=== PATIENT | female | born 1995 | race African-American/Black ===

== ENCOUNTER 2020-12-30 20:41 | Inpatient (IN) | payer OTHER ==
[2020-12-30 21:54] LABS: Hemoglobin 10.7 gm/dl (10.1-14.3); Mean Corpuscular HGB Conc 32 % (30-34); Mean Corpuscular Volume 71 fl (79-97); Platelet Count 225 K/mm3 (140-440); Red Blood Count 4.65 M/mm3 (3.65-5.03); Red Cell Distribution Width 15.2 % (13.2-15.2)
[2020-12-31] MEDS ORDERED: AMPICILLIN/NS 2 GM/100 ML 2 GM/100 ML BAG IV ONE (00:43)
[2020-12-31] MEDS ORDERED: TERBUTALINE 1 MG/1 ML INJ SUB-Q PRN (00:43)
[2020-12-31] MEDS ORDERED: ONDANSETRON 4 MG/2 ML INJ IV PRN (00:43)
[2020-12-31] MEDS ORDERED: NALOXONE 0.4 MG/1 ML INJ IV PRN (00:43)
[2020-12-31] MEDS ORDERED: ePHEDrine SULFATE 50 MG/1 ML INJ IV PRN ×2 (00:43→20:04)
[2020-12-31] MEDS ORDERED: MINERAL OIL 30 ML ORAL LIQD PO PRN (00:43)
[2020-12-31] MEDS ORDERED: BUTORPHANOL 2 MG/1 ML INJ IV PRN (00:43)
[2020-12-31] MEDS ORDERED: OXYTOCIN DRIP 30 UNITS/500 ML BAG IV SCH ×2 (01:00)
--- NOTE | 2020-12-31 01:07 | History and Physical Report ---
History of Present Illness Date of examination: 12/31/20 Date of admission: 12/30/20 20:41 Chief complaint: Presents for scheduled induction of labor secondary to GDM A2. History of present illness: Late entry to care at 14 4/7 weeks to [facility]. course complicated by GDM (following with [facility]; on Glyburide 2.5mg PO after dinner), anemia (on Ferrous Sulfate 325mg PO daily), and vitamin D deficiency (took PO Vit D supplementation). Past History Past Medical History: no pertinent history Past Surgical History: hemorrhoidectomy Family/Genetic History: diabetes, hypertension Social history: no significant social history - Obstetrical History Expected Date of Delivery: 01/05/21 Actual Gestation: 39 Week(s) 2 Day(s) : 1 Para: 0 Medications and Allergies Allergies Allergy/AdvReac Type Severity Reaction Status Date / Time No Known Allergies Allergy Unverified 12/30/20 21:48 Home Medications Medication Instructions Recorded Confirmed Last Taken Type One Daily Tablet 1 tab PO DAILY 12/30/20 12/30/20 12/30/20 10:00 History Active Meds: Active Medications Butorphanol Tartrate (Butorphanol 2 Mg/1 Ml Inj) 2 mg IV Q2H PRN PRN Reason: Pain , Severe (7-10) Ephedrine Sulfate (Ephedrine Sulfate 50 Mg/1 Ml Inj) 10 mg IV Q2M PRN PRN Reason: Hypotension Oxytocin/Sodium Chloride (Pitocin/Ns 30 Unit/500ml) 30 units in 500 mls @ 2 mls/hr IV TITR ANJU; Protocol Lactated Ringer's (Lactated Ringers) 1,000 mls @ 125 mls/hr IV DIRECT ANJU Oxytocin/Sodium Chloride (Pitocin/Ns 30 Unit/500ml) 30 units in 500 mls @ 40 mls/hr IV TITR ANJU; Protocol Ampicillin Sodium (Ampicillin/Ns 2 Gm/100 Ml) 2 gm in 100 mls @ 100 mls/hr IV ONCE ONE; Protocol Stop: 12/31/20 01:42 Ampicillin Sodium (Ampicillin/Ns 1 Gm/50 Ml) 1 gm in 50 mls @ 100 mls/hr IV Q4H ANJU; Protocol Mineral Oil (Mineral Oil 30 Ml Oral Liqd) 30 ml PO QHS PRN PRN Reason: Constipation Naloxone HCl (Naloxone 0.4 Mg/1 Ml Inj) 0.1 mg IV Q2MIN PRN PRN Reason: Res Rate </= 8 or 02 SAT < 92% Ondansetron HCl (Ondansetron 4 Mg/2 Ml Inj) 4 mg IV Q8H PRN PRN Reason: Nausea And Vomiting Terbutaline Sulfate (Terbutaline 1 Mg/1 Ml Inj) 0.25 mg SUB-Q ONCE PRN PRN Reason: Hyperstimulation/Hypertonicity Review of Systems All systems: negative - Vital Signs Vital signs: Vital Signs Temp Pulse Resp BP Pulse Ox 98.6 F 94 H 16 107/56 99 12/30/20 21:59 12/30/20 21:59 12/30/20 21:59 12/30/20 21:59 12/30/20 21:59 Temp Pulse Resp BP Pulse Ox 98.6 F 93 H 16 107/56 99 12/30/20 21:59 12/31/20 00:53 12/30/20 21:59 12/30/20 22:01 12/31/20 00:53 - Physical Exam Breasts: Positive: normal Cardiovascular: Regular rate Lungs: Positive: Clear to auscultation, Normal air movement Abdomen: Positive: normal appearance, soft Genitourinary (Female): Positive: normal external genitalia, normal perenium Vagina: Positive: normal moisture Uterus: Positive: enlarged Anus/Rectum: Positive: normal perianal skin Extremities: Positive: normal - Obstetrical FHR: category 1 Uterine Contraction Monitor Mode: External Cervical Dilatation: 1 (intact; vtx) Cervical Effacement Percentage: 20 station: -3 Uterine Contraction Frequency (min): 1-4 Uterine Contraction Duration: 60 Uterine Contraction Pattern: Irregular Uterine Tone Measurement Phase: Resting Uterine Contraction Intensity: Mild Results Result Diagrams: 12/30/20 21:45 Abnormal lab results 12/30/20 Range/Units 21:45 MCV 71 L (79-97) fl MCH 23 L (28-32) pg All other labs normal. Assessment and Plan A: IUP at 39 2/7 weeks Category I tracing GDM A2 GBS Positive P: Admit to L&D per routine orders Accuchecks q 6 hours Hold Pitocin until contractions begin to space out Expectant Management GBS Prophylaxis
[2020-12-31] MEDS: LACTATED RINGERS 1,000 ML IV SCH ×2 (01:11→10:39)
[2020-12-31] MEDS: AMPICILLIN/NS 1 GM/50 ML 1 GM/50 ML BAG IV SCH ×2 (05:08→18:04)
--- NOTE | 2020-12-31 09:43 | Progress Note ---
Assessment and Plan A: IUP@ 39.2 wks GDMA2 P: Continue monitoring with Pitocin Accuchecks q4 hr Pain med/Epidural prn Anticipate progress Subjective - Subjective Date of service: 12/31/20 Principal diagnosis: IUP@ 39.2 WKS Patient reports: movement normal Objective - Vital Signs Vital Signs: Vital Signs - 12hr 12/30/20 12/30/20 12/30/20 21:59 22:00 22:01 Temperature 98.6 F Pulse Rate 94 H 83 Respiratory 16 Rate Blood Pressure 107/56 Blood Pressure 107/56 [Right] O2 Sat by Pulse 99 98 Oximetry 12/30/20 12/30/20 12/30/20 22:05 22:10 22:15 Temperature Pulse Rate 81 88 96 H Respiratory Rate Blood Pressure Blood Pressure [Right] O2 Sat by Pulse 99 98 98 Oximetry 12/30/20 12/30/20 12/30/20 22:20 22:25 22:30 Temperature Pulse Rate 113 H 98 H 120 H Respiratory Rate Blood Pressure Blood Pressure [Right] O2 Sat by Pulse 98 98 98 Oximetry 12/30/20 12/30/20 12/30/20 22:35 22:40 22:45 Temperature Pulse Rate 117 H 98 H 115 H Respiratory Rate Blood Pressure Blood Pressure [Right] O2 Sat by Pulse 98 98 98 Oximetry 12/30/20 12/30/20 12/30/20 22:50 22:55 23:03 Temperature Pulse Rate 111 H 98 H 100 H Respiratory Rate Blood Pressure Blood Pressure [Right] O2 Sat by Pulse 98 97 99 Oximetry 12/30/20 12/30/20 12/30/20 23:08 23:13 23:18 Temperature Pulse Rate 99 H 105 H 90 Respiratory Rate Blood Pressure Blood Pressure [Right] O2 Sat by Pulse 98 99 99 Oximetry 12/30/20 12/30/20 12/30/20 23:23 23:28 23:33 Temperature Pulse Rate 91 H 100 H 100 H Respiratory Rate Blood Pressure Blood Pressure [Right] O2 Sat by Pulse 99 100 99 Oximetry 12/30/20 12/30/20 12/30/20 23:38 23:43 23:48 Temperature Pulse Rate 93 H 111 H 112 H Respiratory Rate Blood Pressure Blood Pressure [Right] O2 Sat by Pulse 98 99 99 Oximetry 12/30/20 12/30/20 12/31/20 23:53 23:58 00:03 Temperature Pulse Rate 80 88 97 H Respiratory Rate Blood Pressure Blood Pressure [Right] O2 Sat by Pulse 99 99 99 Oximetry 12/31/20 12/31/20 12/31/20 00:08 00:13 00:18 Temperature Pulse Rate 99 H 89 82 Respiratory Rate Blood Pressure Blood Pressure [Right] O2 Sat by Pulse 99 99 99 Oximetry 12/31/20 12/31/20 12/31/20 00:23 00:28 00:33 Temperature Pulse Rate 90 85 80 Respiratory Rate Blood Pressure Blood Pressure [Right] O2 Sat by Pulse 99 98 99 Oximetry 12/31/20 12/31/20 12/31/20 00:38 00:43 00:48 Temperature Pulse Rate 88 98 H 89 Respiratory Rate Blood Pressure Blood Pressure [Right] O2 Sat by Pulse 99 100 99 Oximetry 12/31/20 12/31/20 12/31/20 00:53 00:58 01:03 Temperature Pulse Rate 93 H 77 82 Respiratory Rate Blood Pressure Blood Pressure [Right] O2 Sat by Pulse 99 99 100 Oximetry 12/31/20 12/31/20 12/31/20 01:08 01:13 01:14 Temperature 98 F Pulse Rate 98 H 84 Respiratory 15 Rate Blood Pressure Blood Pressure [Right] O2 Sat by Pulse 100 99 Oximetry 12/31/20 12/31/20 12/31/20 01:15 01:18 01:23 Temperature Pulse Rate 90 115 H 81 Respiratory Rate Blood Pressure 111/68 Blood Pressure [Right] O2 Sat by Pulse 99 98 Oximetry 12/31/20 12/31/20 12/31/20 01:28 01:33 01:38 Temperature Pulse Rate 90 94 H 90 Respiratory Rate Blood Pressure Blood Pressure [Right] O2 Sat by Pulse 98 99 99 Oximetry 12/31/20 12/31/20 12/31/20 01:43 01:48 01:53 Temperature Pulse Rate 89 86 79 Respiratory Rate Blood Pressure Blood Pressure [Right] O2 Sat by Pulse 100 99 100 Oximetry 12/31/20 12/31/20 12/31/20 01:58 02:03 02:08 Temperature Pulse Rate 82 86 81 Respiratory Rate Blood Pressure Blood Pressure [Right] O2 Sat by Pulse 100 100 100 Oximetry 12/31/20 12/31/20 12/31/20 02:13 02:18 02:23 Temperature Pulse Rate 80 106 H 98 H Respiratory Rate Blood Pressure Blood Pressure [Right] O2 Sat by Pulse 99 99 99 Oximetry 12/31/20 12/31/20 12/31/20 02:28 02:33 02:38 Temperature Pulse Rate 79 84 100 H Respiratory Rate Blood Pressure Blood Pressure [Right] O2 Sat by Pulse 99 98 98 Oximetry 12/31/20 12/31/20 12/31/20 02:43 02:48 02:53 Temperature Pulse Rate 80 77 74 Respiratory Rate Blood Pressure Blood Pressure [Right] O2 Sat by Pulse 99 98 98 Oximetry 12/31/20 12/31/20 12/31/20 02:58 03:03 03:08 Temperature Pulse Rate 72 88 64 Respiratory Rate Blood Pressure Blood Pressure [Right] O2 Sat by Pulse 100 100 99 Oximetry 12/31/20 12/31/20 12/31/20 03:13 03:18 03:23 Temperature Pulse Rate 76 76 78 Respiratory Rate Blood Pressure Blood Pressure [Right] O2 Sat by Pulse 99 99 99 Oximetry 12/31/20 12/31/20 12/31/20 03:28 03:33 03:38 Temperature Pulse Rate 100 H 99 H 98 H Respiratory Rate Blood Pressure Blood Pressure [Right] O2 Sat by Pulse 100 100 99 Oximetry 12/31/20 12/31/20 12/31/20 03:43 03:48 03:53 Temperature Pulse Rate 95 H 72 70 Respiratory Rate Blood Pressure Blood Pressure [Right] O2 Sat by Pulse 99 99 99 Oximetry 12/31/20 12/31/20 12/31/20 03:58 04:03 04:08 Temperature Pulse Rate 99 H 77 74 Respiratory Rate Blood Pressure Blood Pressure [Right] O2 Sat by Pulse 100 100 99 Oximetry 12/31/20 12/31/20 12/31/20 04:13 04:18 04:23 Temperature Pulse Rate 85 84 75 Respiratory Rate Blood Pressure Blood Pressure [Right] O2 Sat by Pulse 100 100 100 Oximetry 12/31/20 12/31/20 12/31/20 04:28 04:33 04:38 Temperature Pulse Rate 76 82 91 H Respiratory Rate Blood Pressure Blood Pressure [Right] O2 Sat by Pulse 100 100 99 Oximetry 12/31/20 12/31/20 12/31/20 04:43 04:48 04:53 Temperature Pulse Rate 98 H 79 100 H Respiratory Rate Blood Pressure Blood Pressure [Right] O2 Sat by Pulse 99 98 100 Oximetry 12/31/20 12/31/20 12/31/20 04:58 05:03 05:08 Temperature Pulse Rate 86 85 80 Respiratory Rate Blood Pressure Blood Pressure [Right] O2 Sat by Pulse 100 98 99 Oximetry 12/31/20 12/31/20 12/31/20 05:13 05:18 05:23 Temperature Pulse Rate 94 H 82 96 H Respiratory Rate Blood Pressure Blood Pressure [Right] O2 Sat by Pulse 100 99 99 Oximetry 12/31/20 12/31/20 12/31/20 05:28 05:33 05:38 Temperature Pulse Rate 104 H 71 76 Respiratory Rate Blood Pressure Blood Pressure [Right] O2 Sat by Pulse 100 100 100 Oximetry 12/31/20 12/31/20 12/31/20 05:43 05:48 05:53 Temperature Pulse Rate 80 95 H 76 Respiratory Rate Blood Pressure Blood Pressure [Right] O2 Sat by Pulse 99 99 97 Oximetry 12/31/20 12/31/20 12/31/20 05:58 06:03 06:08 Temperature Pulse Rate 76 75 79 Respiratory Rate Blood Pressure Blood Pressure [Right] O2 Sat by Pulse 98 96 99 Oximetry 12/31/20 12/31/20 12/31/20 06:13 06:18 06:23 Temperature Pulse Rate 96 H 100 H 74 Respiratory Rate Blood Pressure Blood Pressure [Right] O2 Sat by Pulse 98 98 98 Oximetry 12/31/20 12/31/20 12/31/20 06:28 06:33 06:38 Temperature Pulse Rate 103 H 107 H 76 Respiratory Rate Blood Pressure Blood Pressure [Right] O2 Sat by Pulse 99 99 98 Oximetry 12/31/20 12/31/20 12/31/20 06:43 06:48 06:53 Temperature Pulse Rate 86 103 H 81 Respiratory Rate Blood Pressure Blood Pressure [Right] O2 Sat by Pulse 98 99 99 Oximetry 12/31/20 12/31/20 12/31/20 06:58 07:01 07:03 Temperature 97.7 F Pulse Rate 98 H 107 H 81 Respiratory 16 Rate Blood Pressure 107/69 Blood Pressure 107/69 [Right] O2 Sat by Pulse 100 100 99 Oximetry 12/31/20 12/31/20 12/31/20 07:14 07:19 07:24 Temperature Pulse Rate 85 74 87 Respiratory Rate Blood Pressure Blood Pressure [Right] O2 Sat by Pulse 100 99 99 Oximetry 12/31/20 12/31/20 12/31/20 07:29 07:34 07:39 Temperature Pulse Rate 84 83 84 Respiratory Rate Blood Pressure Blood Pressure [Right] O2 Sat by Pulse 98 98 97 Oximetry 12/31/20 12/31/20 12/31/20 07:44 07:49 07:54 Temperature Pulse Rate 97 H 94 H 84 Respiratory Rate Blood Pressure Blood Pressure [Right] O2 Sat by Pulse 99 99 100 Oximetry 12/31/20 12/31/20 12/31/20 07:59 08:04 08:09 Temperature Pulse Rate 72 95 H 79 Respiratory Rate Blood Pressure Blood Pressure [Right] O2 Sat by Pulse 99 99 100 Oximetry 12/31/20 12/31/20 12/31/20 08:14 08:19 08:24 Temperature Pulse Rate 82 79 80 Respiratory Rate Blood Pressure Blood Pressure [Right] O2 Sat by Pulse 98 97 97 Oximetry 12/31/20 12/31/20 12/31/20 08:29 08:34 08:39 Temperature Pulse Rate 88 91 H 78 Respiratory Rate Blood Pressure Blood Pressure [Right] O2 Sat by Pulse 97 99 97 Oximetry 12/31/20 12/31/20 12/31/20 08:44 08:49 08:54 Temperature Pulse Rate 74 74 79 Respiratory Rate Blood Pressure Blood Pressure [Right] O2 Sat by Pulse 98 98 96 Oximetry 12/31/20 12/31/20 12/31/20 08:59 09:04 09:09 Temperature Pulse Rate 74 85 68 Respiratory Rate Blood Pressure Blood Pressure [Right] O2 Sat by Pulse 99 98 99 Oximetry 12/31/20 12/31/20 12/31/20 09:14 09:19 09:24 Temperature Pulse Rate 78 71 87 Respiratory Rate Blood Pressure Blood Pressure [Right] O2 Sat by Pulse 100 100 100 Oximetry 12/31/20 12/31/20 09:29 09:34 Temperature Pulse Rate 76 96 H Respiratory Rate Blood Pressure Blood Pressure [Right] O2 Sat by Pulse 99 99 Oximetry - Exam Breasts: normal Abdomen: Present: normal appearance, soft, normal bowel sounds Vulva: both: normal Uterus: Present: normal, other (GRAVID) FHR: auscultation normal, category 1 Uterine Contraction Monitor Mode: External Cervical Dilatation: 1 Cervical Effacement Percentage: 75 station: -3 Uterine Contraction Frequency (min): Q2-3 Uterine Contraction Pattern: Regular Uterine Tone Measurement Phase: Resting Uterine Contraction Intensity: Mild Extremities: normal - Labs Labs: Abnormal Labs 12/30/20 12/30/20 21:45 22:23 MCV 71 L MCH 23 L POC Glucose 112 H Laboratory Results - last 24 hr 12/30/20 12/30/20 12/30/20 21:45 21:45 21:45 WBC 7.2 RBC 4.65 Hgb 10.7 Hct 33.0 MCV 71 L MCH 23 L MCHC 32 RDW 15.2 Plt Count 225 POC Glucose Syphilis IgG Antibody Nonreactive Blood Type B POSITIVE Antibody Screen Negative 12/30/20 12/31/20 12/31/20 22:23 02:01 06:41 WBC RBC Hgb Hct MCV MCH MCHC RDW Plt Count POC Glucose 112 H 95 81 Syphilis IgG Antibody Blood Type Antibody Screen
--- NOTE | 2020-12-31 18:10 | Progress Note ---
Subjective - Subjective Date of service: 12/31/20 Principal diagnosis: IUP@ 39.2 WKS Interval history: PM rounds feeling rectal pressure cervix 9cm/100%/0 station inadequate pushing, will allow for passive descent FHT Category 2 CFM expect Danita Romero MD Patient reports: movement normal Objective - Vital Signs Vital Signs: Vital Signs - 12hr 12/31/20 12/31/20 12/31/20 06:13 06:18 06:23 Temperature Pulse Rate 96 H 100 H 74 Respiratory Rate Blood Pressure Blood Pressure [Right] O2 Sat by Pulse 98 98 98 Oximetry 12/31/20 12/31/20 12/31/20 06:28 06:33 06:38 Temperature Pulse Rate 103 H 107 H 76 Respiratory Rate Blood Pressure Blood Pressure [Right] O2 Sat by Pulse 99 99 98 Oximetry 12/31/20 12/31/20 12/31/20 06:43 06:48 06:53 Temperature Pulse Rate 86 103 H 81 Respiratory Rate Blood Pressure Blood Pressure [Right] O2 Sat by Pulse 98 99 99 Oximetry 12/31/20 12/31/20 12/31/20 06:58 07:01 07:03 Temperature 97.7 F Pulse Rate 98 H 107 H 81 Respiratory 16 Rate Blood Pressure 107/69 Blood Pressure 107/69 [Right] O2 Sat by Pulse 100 100 99 Oximetry 12/31/20 12/31/20 12/31/20 07:14 07:19 07:24 Temperature Pulse Rate 85 74 87 Respiratory Rate Blood Pressure Blood Pressure [Right] O2 Sat by Pulse 100 99 99 Oximetry 12/31/20 12/31/20 12/31/20 07:29 07:34 07:39 Temperature Pulse Rate 84 83 84 Respiratory Rate Blood Pressure Blood Pressure [Right] O2 Sat by Pulse 98 98 97 Oximetry 12/31/20 12/31/20 12/31/20 07:44 07:49 07:54 Temperature Pulse Rate 97 H 94 H 84 Respiratory Rate Blood Pressure Blood Pressure [Right] O2 Sat by Pulse 99 99 100 Oximetry 12/31/20 12/31/20 12/31/20 07:59 08:04 08:09 Temperature Pulse Rate 72 95 H 79 Respiratory Rate Blood Pressure Blood Pressure [Right] O2 Sat by Pulse 99 99 100 Oximetry 12/31/20 12/31/20 12/31/20 08:14 08:19 08:24 Temperature Pulse Rate 82 79 80 Respiratory Rate Blood Pressure Blood Pressure [Right] O2 Sat by Pulse 98 97 97 Oximetry 12/31/20 12/31/20 12/31/20 08:29 08:34 08:39 Temperature Pulse Rate 88 91 H 78 Respiratory Rate Blood Pressure Blood Pressure [Right] O2 Sat by Pulse 97 99 97 Oximetry 12/31/20 12/31/20 12/31/20 08:44 08:49 08:54 Temperature Pulse Rate 74 74 79 Respiratory Rate Blood Pressure Blood Pressure [Right] O2 Sat by Pulse 98 98 96 Oximetry 12/31/20 12/31/20 12/31/20 08:59 09:04 09:09 Temperature Pulse Rate 74 85 68 Respiratory Rate Blood Pressure Blood Pressure [Right] O2 Sat by Pulse 99 98 99 Oximetry 12/31/20 12/31/20 12/31/20 09:14 09:19 09:24 Temperature Pulse Rate 78 71 87 Respiratory Rate Blood Pressure Blood Pressure [Right] O2 Sat by Pulse 100 100 100 Oximetry 12/31/20 12/31/20 12/31/20 09:29 09:34 09:39 Temperature Pulse Rate 76 96 H 84 Respiratory Rate Blood Pressure Blood Pressure [Right] O2 Sat by Pulse 99 99 100 Oximetry 12/31/20 12/31/20 12/31/20 09:44 09:53 09:58 Temperature Pulse Rate 89 85 105 H Respiratory Rate Blood Pressure Blood Pressure [Right] O2 Sat by Pulse 100 99 99 Oximetry 12/31/20 12/31/20 12/31/20 10:03 10:08 10:13 Temperature Pulse Rate 76 85 77 Respiratory Rate Blood Pressure Blood Pressure [Right] O2 Sat by Pulse 99 99 99 Oximetry 12/31/20 12/31/20 12/31/20 10:18 10:23 10:28 Temperature Pulse Rate 80 96 H 88 Respiratory Rate Blood Pressure Blood Pressure [Right] O2 Sat by Pulse 99 99 99 Oximetry 12/31/20 12/31/20 12/31/20 10:33 10:38 10:43 Temperature Pulse Rate 78 80 76 Respiratory Rate Blood Pressure Blood Pressure [Right] O2 Sat by Pulse 99 99 100 Oximetry 12/31/20 12/31/20 12/31/20 10:48 10:53 10:58 Temperature Pulse Rate 80 72 85 Respiratory Rate Blood Pressure Blood Pressure [Right] O2 Sat by Pulse 99 99 99 Oximetry 12/31/20 12/31/20 12/31/20 11:03 11:35 11:40 Temperature Pulse Rate 103 H 80 93 H Respiratory Rate Blood Pressure Blood Pressure [Right] O2 Sat by Pulse 100 100 100 Oximetry 12/31/20 12/31/20 12/31/20 11:45 11:50 11:55 Temperature Pulse Rate 89 83 83 Respiratory Rate Blood Pressure Blood Pressure [Right] O2 Sat by Pulse 100 100 100 Oximetry 12/31/20 12/31/20 12/31/20 12:00 12:05 12:10 Temperature Pulse Rate 79 93 H 74 Respiratory Rate Blood Pressure Blood Pressure [Right] O2 Sat by Pulse 98 100 99 Oximetry 12/31/20 12/31/20 12/31/20 12:15 12:20 12:25 Temperature Pulse Rate 87 73 94 H Respiratory Rate Blood Pressure Blood Pressure [Right] O2 Sat by Pulse 98 98 98 Oximetry 12/31/20 12/31/20 12/31/20 12:30 12:35 12:40 Temperature Pulse Rate 71 78 84 Respiratory Rate Blood Pressure Blood Pressure [Right] O2 Sat by Pulse 99 100 100 Oximetry 12/31/20 12/31/20 12/31/20 12:45 12:50 12:55 Temperature Pulse Rate 72 74 80 Respiratory Rate Blood Pressure Blood Pressure [Right] O2 Sat by Pulse 100 100 99 Oximetry 12/31/20 12/31/20 12/31/20 13:00 13:05 13:10 Temperature Pulse Rate 79 79 84 Respiratory Rate Blood Pressure Blood Pressure [Right] O2 Sat by Pulse 99 100 100 Oximetry 12/31/20 12/31/20 12/31/20 13:15 13:20 13:25 Temperature Pulse Rate 88 74 78 Respiratory Rate Blood Pressure Blood Pressure [Right] O2 Sat by Pulse 100 100 100 Oximetry 12/31/20 12/31/20 12/31/20 13:30 13:35 13:40 Temperature Pulse Rate 87 84 84 Respiratory Rate Blood Pressure Blood Pressure [Right] O2 Sat by Pulse 100 100 100 Oximetry 12/31/20 12/31/20 12/31/20 13:45 13:50 13:51 Temperature 98.4 F Pulse Rate 72 93 H 72 Respiratory 18 Rate Blood Pressure 120/68 Blood Pressure 120/68 [Right] O2 Sat by Pulse 97 98 98 Oximetry 12/31/20 12/31/20 12/31/20 13:55 14:00 14:05 Temperature Pulse Rate 80 78 85 Respiratory Rate Blood Pressure Blood Pressure [Right] O2 Sat by Pulse 100 99 100 Oximetry 12/31/20 12/31/20 12/31/20 14:10 14:15 14:20 Temperature Pulse Rate 111 H 96 H 94 H Respiratory Rate Blood Pressure Blood Pressure [Right] O2 Sat by Pulse 100 100 100 Oximetry 12/31/20 12/31/20 12/31/20 14:25 14:30 14:35 Temperature Pulse Rate 83 80 95 H Respiratory Rate Blood Pressure Blood Pressure [Right] O2 Sat by Pulse 100 100 100 Oximetry 12/31/20 12/31/20 12/31/20 14:40 14:46 14:51 Temperature Pulse Rate 88 88 95 H Respiratory Rate Blood Pressure Blood Pressure [Right] O2 Sat by Pulse 100 100 100 Oximetry 12/31/20 12/31/20 12/31/20 14:56 15:01 15:06 Temperature Pulse Rate 87 83 100 H Respiratory Rate Blood Pressure Blood Pressure [Right] O2 Sat by Pulse 100 100 99 Oximetry 12/31/20 12/31/20 12/31/20 15:11 15:16 15:24 Temperature Pulse Rate 93 H 99 H 83 Respiratory Rate Blood Pressure Blood Pressure [Right] O2 Sat by Pulse 99 100 100 Oximetry 12/31/20 12/31/20 12/31/20 15:29 15:34 15:39 Temperature Pulse Rate 87 90 91 H Respiratory Rate Blood Pressure Blood Pressure [Right] O2 Sat by Pulse 100 100 100 Oximetry 12/31/20 12/31/20 12/31/20 15:44 15:49 15:54 Temperature Pulse Rate 88 89 81 Respiratory Rate Blood Pressure Blood Pressure [Right] O2 Sat by Pulse 99 99 99 Oximetry 12/31/20 12/31/20 12/31/20 15:59 16:04 16:09 Temperature Pulse Rate 78 72 80 Respiratory Rate Blood Pressure Blood Pressure [Right] O2 Sat by Pulse 100 100 99 Oximetry 12/31/20 12/31/20 12/31/20 16:14 16:19 16:24 Temperature Pulse Rate 86 82 81 Respiratory Rate Blood Pressure Blood Pressure [Right] O2 Sat by Pulse 100 100 100 Oximetry 12/31/20 12/31/20 12/31/20 16:29 16:34 16:39 Temperature Pulse Rate 92 H 86 81 Respiratory Rate Blood Pressure Blood Pressure [Right] O2 Sat by Pulse 100 100 100 Oximetry 12/31/20 12/31/20 12/31/20 16:44 16:49 16:54 Temperature Pulse Rate 79 81 77 Respiratory Rate Blood Pressure Blood Pressure [Right] O2 Sat by Pulse 99 99 99 Oximetry 12/31/20 12/31/20 12/31/20 16:59 17:04 17:09 Temperature Pulse Rate 78 77 76 Respiratory Rate Blood Pressure Blood Pressure [Right] O2 Sat by Pulse 97 99 97 Oximetry 12/31/20 12/31/20 12/31/20 17:14 17:19 17:24 Temperature 98.1 F Pulse Rate 79 89 89 Respiratory 18 Rate Blood Pressure Blood Pressure 110/61 [Right] O2 Sat by Pulse 98 98 98 Oximetry 12/31/20 12/31/20 12/31/20 17:25 17:29 17:34 Temperature Pulse Rate 85 98 H 89 Respiratory Rate Blood Pressure 110/61 Blood Pressure [Right] O2 Sat by Pulse 99 98 Oximetry 12/31/20 12/31/20 12/31/20 17:39 17:44 17:49 Temperature Pulse Rate 95 H 81 77 Respiratory Rate Blood Pressure Blood Pressure [Right] O2 Sat by Pulse 98 100 100 Oximetry 12/31/20 12/31/20 12/31/20 17:54 17:59 18:04 Temperature Pulse Rate 91 H 102 H 102 H Respiratory Rate Blood Pressure Blood Pressure [Right] O2 Sat by Pulse 99 99 100 Oximetry - Labs Labs: Abnormal Labs 12/30/20 12/30/20 12/31/20 21:45 22:23 13:53 MCV 71 L MCH 23 L POC Glucose 112 H 69 L 12/31/20 15:00 MCV MCH POC Glucose 139 H Laboratory Results - last 24 hr 12/30/20 12/30/20 12/30/20 21:45 21:45 21:45 WBC 7.2 RBC 4.65 Hgb 10.7 Hct 33.0 MCV 71 L MCH 23 L MCHC 32 RDW 15.2 Plt Count 225 POC Glucose Syphilis IgG Antibody Nonreactive Coronavirus (PCR) Blood Type B POSITIVE Antibody Screen Negative 03/22/21 03/23/21 03/23/21 22:23 02:01 06:41 WBC RBC Hgb Hct MCV MCH MCHC RDW Plt Count POC Glucose 112 H 95 81 Syphilis IgG Antibody Coronavirus (PCR) Blood Type Antibody Screen 12/31/20 12/31/20 12/31/20 09:15 09:26 13:53 WBC RBC Hgb Hct MCV MCH MCHC RDW Plt Count POC Glucose 72 69 L Syphilis IgG Antibody Coronavirus (PCR) Negative Blood Type Antibody Screen 12/31/20 15:00 WBC RBC Hgb Hct MCV MCH MCHC RDW Plt Count POC Glucose 139 H Syphilis IgG Antibody Coronavirus (PCR) Blood Type Antibody Screen
[2020-12-31] MEDS ORDERED: LACTATED RINGERS 250 ML IV SOLN IV ONE (20:04)
[2020-12-31] MEDS ORDERED: NALOXONE 2 MG/2 ML INJ IV PRN (20:04)
[2020-12-31] MEDS ORDERED: diphenhydrAMINE 50 MG/ML VIAL IV PRN (20:04)
[2020-12-31] MEDS ORDERED: NalbUPHINE 10 MG/1 ML INJ IV PRN (20:04)
[2020-12-31] MEDS ORDERED: fentaNYL-BUPIV 2 MCG/ML-0.125% 200 MCG/100 ML BAG EPIDURAL SCH (21:00)
--- NOTE | 2020-12-31 21:56 | Anesthesia Consultation ---
Anesthesia Consult and Med Hx Date of service: 12/31/20 - Airway Anesthetic Teeth Evaluation: Good ROM Head & Neck: Adequate Mental/Hyoid Distance: Adequate Mallampati Class: Class II Intubation Access Assessment: Probably Good - Pulmonary Exam CTA: Yes - Cardiac Exam Cardiac Exam: RRR - Pre-Operative Health Status ASA Pre-Surgery Classification: ASA2 Proposed Anesthetic Plan: Epidural - Pulmonary Hx Smoking: No Hx Asthma: No COPD: No Hx Pneumonia: No Hx Sleep Apnea: No - Cardiovascular System Hx Hypertension: No Hx Heart Attack/AMI: No Hx Angina: No - Central Nervous System Hx Seizures: No Hx Psychiatric Problems: No - Gastrointestinal Hx Gastroesophageal Reflux Disease: No - Endocrine Hx Renal Disease: No Hx End Stage Renal Disease: No Hx Insulin Dependent Diabetes: No Hx Non-Insulin Dependent Diabetes: No Hx Hypothyroidism: No Hx Hyperthyroidism: No - Hematic Hx Anemia: Yes Hx Sickle Cell Disease: No - Other Systems Hx Alcohol Use: No
--- NOTE | 2020-12-31 21:57 | Progress Note ---
Labor Epidural - Labor Epidural Start Time: 21:40 Stop Time: 21:53 Performed by:: JUANJO WICK (Sheila PEREZ) Procedure: Patient is requesting epidural for labor and pain. H&P, labs were reviewed. Patient IDed, H&P reviewed, all questions and concerns were answered, and consent was signed. Timeout was performed at bedside. Patient in sitting position. Sterile prep and drape was performed. 3ml of 1% lidocaine skin wheal at L[3]- L [4]. 18-gauge Tuohy epidural needle was advanced to loss of resistance with air technique 6cm. Negative CSF negative blood. Epidural catheter advanced to [12] centimeters. [negative] Aspiration [negative] test dose. Sterile dressing applied. Patient tolerated procedure.
[2020-12-31] MEDS ORDERED: AMPICILLIN/NS 1 GM/50 ML 1 GM/50 ML BAG IV SCH (22:00)
--- NOTE | 2021-01-01 01:55 | Progress Note ---
Subjective - Subjective Date of service: 01/01/21 Principal diagnosis: IUP@ 39.2 WKS Interval history: cervix: 10/100/0 inadequate pushing increase [id number] FHT Category 1 [place]: Q1-2 minutes CFM Will allow for passive descent Maternal/ wellbeing reassuring overall Danita Romero MD Patient reports: movement normal Objective - Vital Signs Vital Signs: Vital Signs - 12hr 12/31/20 12/31/20 12/31/20 13:55 14:00 14:05 Temperature Pulse Rate 80 78 85 Respiratory Rate Blood Pressure Blood Pressure [Right] O2 Sat by Pulse 100 99 100 Oximetry 12/31/20 12/31/20 12/31/20 14:10 14:15 14:20 Temperature Pulse Rate 111 H 96 H 94 H Respiratory Rate Blood Pressure Blood Pressure [Right] O2 Sat by Pulse 100 100 100 Oximetry 12/31/20 12/31/20 12/31/20 14:25 14:30 14:35 Temperature Pulse Rate 83 80 95 H Respiratory Rate Blood Pressure Blood Pressure [Right] O2 Sat by Pulse 100 100 100 Oximetry 12/31/20 12/31/20 12/31/20 14:40 14:46 14:51 Temperature Pulse Rate 88 88 95 H Respiratory Rate Blood Pressure Blood Pressure [Right] O2 Sat by Pulse 100 100 100 Oximetry 12/31/20 12/31/20 12/31/20 14:56 15:01 15:06 Temperature Pulse Rate 87 83 100 H Respiratory Rate Blood Pressure Blood Pressure [Right] O2 Sat by Pulse 100 100 99 Oximetry 12/31/20 12/31/20 12/31/20 15:11 15:16 15:24 Temperature Pulse Rate 93 H 99 H 83 Respiratory Rate Blood Pressure Blood Pressure [Right] O2 Sat by Pulse 99 100 100 Oximetry 12/31/20 12/31/20 12/31/20 15:29 15:34 15:39 Temperature Pulse Rate 87 90 91 H Respiratory Rate Blood Pressure Blood Pressure [Right] O2 Sat by Pulse 100 100 100 Oximetry 12/31/20 12/31/20 12/31/20 15:44 15:49 15:54 Temperature Pulse Rate 88 89 81 Respiratory Rate Blood Pressure Blood Pressure [Right] O2 Sat by Pulse 99 99 99 Oximetry 12/31/20 12/31/20 12/31/20 15:59 16:04 16:09 Temperature Pulse Rate 78 72 80 Respiratory Rate Blood Pressure Blood Pressure [Right] O2 Sat by Pulse 100 100 99 Oximetry 12/31/20 12/31/20 12/31/20 16:14 16:19 16:24 Temperature Pulse Rate 86 82 81 Respiratory Rate Blood Pressure Blood Pressure [Right] O2 Sat by Pulse 100 100 100 Oximetry 12/31/20 12/31/20 12/31/20 16:29 16:34 16:39 Temperature Pulse Rate 92 H 86 81 Respiratory Rate Blood Pressure Blood Pressure [Right] O2 Sat by Pulse 100 100 100 Oximetry 12/31/20 12/31/20 12/31/20 16:44 16:49 16:54 Temperature Pulse Rate 79 81 77 Respiratory Rate Blood Pressure Blood Pressure [Right] O2 Sat by Pulse 99 99 99 Oximetry 12/31/20 12/31/20 12/31/20 16:59 17:04 17:09 Temperature Pulse Rate 78 77 76 Respiratory Rate Blood Pressure Blood Pressure [Right] O2 Sat by Pulse 97 99 97 Oximetry 12/31/20 12/31/20 12/31/20 17:14 17:19 17:24 Temperature 98.1 F Pulse Rate 79 89 89 Respiratory 18 Rate Blood Pressure Blood Pressure 110/61 [Right] O2 Sat by Pulse 98 98 98 Oximetry 12/31/20 12/31/20 12/31/20 17:25 17:29 17:34 Temperature Pulse Rate 85 98 H 89 Respiratory Rate Blood Pressure 110/61 Blood Pressure [Right] O2 Sat by Pulse 99 98 Oximetry 12/31/20 12/31/20 12/31/20 17:39 17:44 17:49 Temperature Pulse Rate 95 H 81 77 Respiratory Rate Blood Pressure Blood Pressure [Right] O2 Sat by Pulse 98 100 100 Oximetry 12/31/20 12/31/20 12/31/20 17:54 17:59 18:04 Temperature Pulse Rate 91 H 102 H 102 H Respiratory Rate Blood Pressure Blood Pressure [Right] O2 Sat by Pulse 99 99 100 Oximetry 12/31/20 12/31/20 12/31/20 18:09 18:14 18:19 Temperature Pulse Rate 96 H 87 89 Respiratory Rate Blood Pressure Blood Pressure [Right] O2 Sat by Pulse 100 100 99 Oximetry 12/31/20 12/31/20 12/31/20 18:24 18:29 18:34 Temperature Pulse Rate 74 82 109 H Respiratory Rate Blood Pressure Blood Pressure [Right] O2 Sat by Pulse 100 99 100 Oximetry 12/31/20 12/31/20 12/31/20 18:39 18:44 18:49 Temperature Pulse Rate 104 H 104 H 88 Respiratory Rate Blood Pressure Blood Pressure [Right] O2 Sat by Pulse 99 99 99 Oximetry 12/31/20 12/31/20 12/31/20 18:54 18:59 19:04 Temperature Pulse Rate 89 82 85 Respiratory Rate Blood Pressure Blood Pressure [Right] O2 Sat by Pulse 99 99 98 Oximetry 12/31/20 12/31/20 12/31/20 19:09 19:14 19:19 Temperature Pulse Rate 110 H 108 H 72 Respiratory Rate Blood Pressure Blood Pressure [Right] O2 Sat by Pulse 98 98 100 Oximetry 12/31/20 12/31/20 12/31/20 19:24 19:29 19:31 Temperature 97.8 F Pulse Rate 86 78 Respiratory 16 Rate Blood Pressure Blood Pressure [Right] O2 Sat by Pulse 99 99 Oximetry 12/31/20 12/31/20 12/31/20 19:32 19:40 19:45 Temperature Pulse Rate 93 H 95 H 74 Respiratory Rate Blood Pressure 129/71 Blood Pressure [Right] O2 Sat by Pulse 100 99 Oximetry 12/31/20 12/31/20 12/31/20 19:50 19:55 20:00 Temperature Pulse Rate 82 104 H 83 Respiratory Rate Blood Pressure Blood Pressure [Right] O2 Sat by Pulse 97 97 96 Oximetry 12/31/20 12/31/20 12/31/20 20:05 20:10 20:15 Temperature Pulse Rate 97 H 80 87 Respiratory Rate Blood Pressure Blood Pressure [Right] O2 Sat by Pulse 95 96 96 Oximetry 12/31/20 12/31/20 12/31/20 20:20 20:25 20:30 Temperature Pulse Rate 90 94 H 103 H Respiratory Rate Blood Pressure Blood Pressure [Right] O2 Sat by Pulse 97 97 98 Oximetry 12/31/20 12/31/20 12/31/20 20:35 20:40 20:45 Temperature Pulse Rate 93 H 93 H 96 H Respiratory Rate Blood Pressure Blood Pressure [Right] O2 Sat by Pulse 97 97 98 Oximetry 12/31/20 12/31/20 12/31/20 20:50 20:55 21:00 Temperature Pulse Rate 86 78 90 Respiratory Rate Blood Pressure Blood Pressure [Right] O2 Sat by Pulse 99 99 99 Oximetry 12/31/20 12/31/20 12/31/20 21:05 21:10 21:15 Temperature Pulse Rate 91 H 92 H 89 Respiratory Rate Blood Pressure Blood Pressure [Right] O2 Sat by Pulse 98 99 99 Oximetry 12/31/20 12/31/20 12/31/20 21:20 21:25 21:30 Temperature Pulse Rate 98 H 104 H 90 Respiratory Rate Blood Pressure Blood Pressure [Right] O2 Sat by Pulse 100 99 100 Oximetry 12/31/20 12/31/20 12/31/20 21:35 21:40 21:41 Temperature Pulse Rate 87 102 H 100 H Respiratory Rate Blood Pressure 135/75 Blood Pressure [Right] O2 Sat by Pulse 100 100 Oximetry 12/31/20 12/31/20 12/31/20 21:45 21:50 21:52 Temperature Pulse Rate 80 72 95 H Respiratory Rate Blood Pressure 131/72 129/73 Blood Pressure [Right] O2 Sat by Pulse 98 99 Oximetry 12/31/20 12/31/20 12/31/20 21:55 21:56 21:58 Temperature Pulse Rate 102 H 96 H 93 H Respiratory Rate Blood Pressure 127/82 124/71 127/74 Blood Pressure [Right] O2 Sat by Pulse 100 Oximetry 12/31/20 12/31/20 12/31/20 22:00 22:02 22:04 Temperature Pulse Rate 100 H 94 H 99 H Respiratory Rate Blood Pressure 124/72 120/66 116/64 Blood Pressure [Right] O2 Sat by Pulse 100 Oximetry 12/31/20 12/31/20 12/31/20 22:05 22:06 22:08 Temperature Pulse Rate 107 H 107 H 99 H Respiratory Rate Blood Pressure 104/56 104/55 Blood Pressure [Right] O2 Sat by Pulse 100 Oximetry 12/31/20 12/31/20 12/31/20 22:10 22:15 22:16 Temperature Pulse Rate 99 H 106 H 96 H Respiratory Rate Blood Pressure 105/57 119/61 Blood Pressure [Right] O2 Sat by Pulse 100 99 Oximetry 12/31/20 12/31/20 12/31/20 22:20 22:21 22:23 Temperature Pulse Rate 103 H 107 H 91 H Respiratory Rate Blood Pressure 95/51 120/64 Blood Pressure [Right] O2 Sat by Pulse 99 Oximetry 12/31/20 12/31/20 12/31/20 22:25 22:26 22:30 Temperature Pulse Rate 102 H 95 H 100 H Respiratory Rate Blood Pressure 123/67 Blood Pressure [Right] O2 Sat by Pulse 99 100 Oximetry 12/31/20 12/31/20 12/31/20 22:35 22:40 22:45 Temperature Pulse Rate 88 88 87 Respiratory Rate Blood Pressure 107/57 Blood Pressure [Right] O2 Sat by Pulse 100 100 100 Oximetry 12/31/20 12/31/20 12/31/20 22:50 22:55 22:59 Temperature Pulse Rate 92 H 86 88 Respiratory Rate Blood Pressure 111/61 Blood Pressure [Right] O2 Sat by Pulse 99 99 Oximetry 12/31/20 12/31/20 12/31/20 23:00 23:05 23:10 Temperature Pulse Rate 90 97 H 105 H Respiratory Rate Blood Pressure Blood Pressure [Right] O2 Sat by Pulse 99 96 100 Oximetry 12/31/20 12/31/20 12/31/20 23:15 23:20 23:25 Temperature Pulse Rate 94 H 92 H 96 H Respiratory Rate Blood Pressure 127/84 Blood Pressure [Right] O2 Sat by Pulse 100 100 100 Oximetry 12/31/20 12/31/20 12/31/20 23:30 23:35 23:40 Temperature Pulse Rate 90 104 H 90 Respiratory Rate Blood Pressure 125/75 Blood Pressure [Right] O2 Sat by Pulse 100 100 100 Oximetry 12/31/20 12/31/20 12/31/20 23:45 23:46 23:50 Temperature 98.3 F Pulse Rate 92 H 97 H 108 H Respiratory Rate Blood Pressure 131/73 Blood Pressure [Right] O2 Sat by Pulse 100 93 99 Oximetry 12/31/20 01/01/21 01/01/21 23:55 00:00 00:05 Temperature Pulse Rate 95 H 96 H 98 H Respiratory Rate Blood Pressure Blood Pressure [Right] O2 Sat by Pulse 100 100 100 Oximetry 01/01/21 01/01/21 01/01/21 00:10 00:15 00:20 Temperature Pulse Rate 98 H 102 H 99 H Respiratory Rate Blood Pressure Blood Pressure [Right] O2 Sat by Pulse 100 100 100 Oximetry 01/01/21 01/01/21 01/01/21 00:25 00:30 00:35 Temperature Pulse Rate 95 H 98 H 101 H Respiratory Rate Blood Pressure 111/51 Blood Pressure [Right] O2 Sat by Pulse 100 100 100 Oximetry 01/01/21 01/01/21 01/01/21 00:40 00:45 00:46 Temperature Pulse Rate 96 H 98 H 90 Respiratory Rate Blood Pressure 130/92 Blood Pressure [Right] O2 Sat by Pulse 100 100 Oximetry 01/01/21 01/01/21 01/01/21 00:50 00:55 01:00 Temperature Pulse Rate 94 H 96 H 114 H Respiratory Rate Blood Pressure Blood Pressure [Right] O2 Sat by Pulse 99 100 100 Oximetry 01/01/21 01/01/21 01/01/21 01:05 01:10 01:15 Temperature Pulse Rate 102 H 104 H 102 H Respiratory Rate Blood Pressure Blood Pressure [Right] O2 Sat by Pulse 100 100 100 Oximetry 01/01/21 01/01/21 01/01/21 01:19 01:20 01:25 Temperature 98.2 F Pulse Rate 104 H 107 H Respiratory 17 Rate Blood Pressure Blood Pressure [Right] O2 Sat by Pulse 100 100 Oximetry 01/01/21 01/01/21 01/01/21 01:30 01:32 01:35 Temperature Pulse Rate 109 H 105 H 107 H Respiratory Rate Blood Pressure 137/57 Blood Pressure [Right] O2 Sat by Pulse 98 100 Oximetry 01/01/21 01/01/21 01/01/21 01:40 01:45 01:50 Temperature Pulse Rate 107 H 106 H 122 H Respiratory Rate Blood Pressure Blood Pressure [Right] O2 Sat by Pulse 99 100 100 Oximetry - Labs Labs: Abnormal Labs 12/30/20 12/30/20 12/31/20 21:45 22:23 13:53 MCV 71 L MCH 23 L POC Glucose 112 H 69 L 12/31/20 12/31/20 15:00 17:51 MCV MCH POC Glucose 139 H 58 L Laboratory Results - last 24 hr 12/31/20 12/31/20 12/31/20 02:01 06:41 09:15 POC Glucose 95 81 Coronavirus (PCR) Negative 12/31/20 12/31/20 12/31/20 09:26 13:53 15:00 POC Glucose 72 69 L 139 H Coronavirus (PCR) 12/31/20 12/31/20 17:51 22:22 POC Glucose 58 L 78 Coronavirus (PCR)
[2021-01-01] MEDS ORDERED: ONDANSETRON 4 MG/2 ML INJ IV PRN (03:17)
[2021-01-01] MEDS ORDERED: KETOROLAC 30 MG/1 ML INJ IV PRN (03:17)
[2021-01-01] MEDS ORDERED: MAGNESIUM HYDROXIDE (MOM) ORAL LIQD UDC PO PRN (03:17)
[2021-01-01] MEDS ORDERED: diphenhydrAMINE 25 MG CAP PO PRN (03:17)
[2021-01-01] MEDS ORDERED: PROMETHAZINE 25 MG TAB PO PRN (03:17)
[2021-01-01] MEDS ORDERED: PROMETHAZINE 25 MG RECT SUPP PR PRN (03:17)
[2021-01-01] MEDS ORDERED: LANOLIN/ZINC/DIMETHICONE (LANSINOH) 7 GM TP PRN (03:17)
[2021-01-01] MEDS ORDERED: HYDROcodone/ACETAMINOPHEN 5-325 MG TAB PO PRN (03:17)
--- NOTE | 2021-01-01 03:26 | Procedure Note ---
OB Delivery Note - Delivery Date of Delivery: 01/01/21 Surgeon: MATTHEW ORANTES Estimated blood loss: 300cc - Vaginal Delivery position: OA Intrapartum events: foul smelling fluid, extend. tachycardia, mult.variable deceleratio Delivery induction: oxytocin Delivery augmentation: rupture of membranes, pitocin Delivery monitor: external FHT, external uterine Route of delivery: Delivery placenta: spontaneous Delivery cord: nuchal cord, 3 umbilical vessels Episiotomy: none Delivery laceration: 2nd degree Delivery repair: vicryl Anesthesia: epidural Delivery comments: Patient pushed to deliver a viable male over an intact perineum with weight and . Position ALEXA, tight nuchal cord reduced after delivery. Spontaneous cry at delivery. Delivery of the anterior shoulder atraumatic, remainder of delivery uncomplicated. Baby placed on maternal abdomen with delayed cord clamping. After approximately 1 minute the cord was clamped, cut and baby handed to waiting [facility] team. Spontaneous delivery of an intact placenta with three-vessel cord. Inspection of the perineum cervix and vagina revealed no lacerations. Firm fundus, EBL 300. All sponge needle and instrument counts correct x2. Mom and baby stable to . Danita Orantes MD
[2021-01-01] MEDS: IBUPROFEN 600 MG TAB PO SCH ×4 (06:14→23:36)
[2021-01-01] MEDS: DOCUSATE SODIUM 100 MG CAP PO SCH ×2 (11:18→22:26)
--- NOTE | 2021-01-01 11:47 | Post Anesthesia Evaluation ---
- Post Anesthesia Evaluation Patient Participated: Yes Airway Patent: Yes Stable Respiratory Function: Yes Nausea/Vomiting: No Temp > 96.8F: Yes Pain Manageable: Yes Adequeate Hydration: Yes Anesthesia Complications: No Block Receding Appropriately: Yes Patient on Ventilator: No
[2021-01-01] MEDS: WITCH HAZEL/ GLYCERIN PAD TP PRN (15:22)
[2021-01-01 19:15] LABS: Hematocrit 30.5 % (30.3-42.9); Hemoglobin 9.6 gm/dl (10.1-14.3)
[2021-01-02] MEDS: IBUPROFEN 600 MG TAB PO SCH ×2 (06:00→10:45)
[2021-01-02] MEDS: DOCUSATE SODIUM 100 MG CAP PO SCH ×2 (10:45→22:04)
--- NOTE | 2021-01-02 11:09 | Progress Note ---
Assessment and Plan A: S/P Asymptomatic anemia p: Continue routine pp care Fe prescribed D/C home tomm if stable Subjective - Subjective Date of service: 01/02/21 Principal diagnosis: s/p Patient reports: appetite normal, voiding normally, pain well controlled, ambulating normally : doing well, bottle feeding Objective - Vital Signs Latest vital signs: Vital Signs Temp Pulse Resp BP BP Pulse Ox 01/02/21 08:53 97.6 F 82 18 116/72 99 01/02/21 01:07 98.6 F 72 18 103/69 01/01/21 20:26 98.0 F 97 H 18 106/51 98 01/01/21 15:31 98.6 F 90 18 111/70 97 Intake and Output 01/01/21 01/02/21 01/02/21 22:59 06:59 14:59 Intake Total 1180 540 Balance 1180 540 Intake: IV 40 40 Left Wrist 40 40 Oral 360 200 Intake, Free Water 780 300 Other: Total, Intake Amount 360 200 # Voids Indwelling Catheter 2 Void 1 1 1 - Exam Breasts: Present: normal Abdomen: Present: normal appearance, soft, normal bowel sounds Vulva: both: normal Uterus: Present: normal, firm, fundal height at umbilicus Extremities: Present: normal - Labs Labs: Abnormal lab results 01/01/21 Range/Units 18:19 Hgb 9.6 L (10.1-14.3) gm/dl
[2021-01-02] MEDS: WITCH HAZEL/ GLYCERIN PAD TP PRN (22:02)
[2021-01-02] MEDS: FERROUS SULFATE 325 MG TAB PO SCH (22:03)
[2021-01-03] MEDS: IBUPROFEN 600 MG TAB PO SCH ×2 (05:24→12:30)
--- NOTE | 2021-01-03 08:18 | Discharge Summary ---
Providers - Providers Date of Admission: 12/30/20 20:41 Date of discharge: 01/03/21 Attending physician: ABDOULAYE COFFMAN JR, MD Primary care physician: ABDOULAYE COFFMAN JR, MD Hospitalization Reason for admission: induction of labor Delivery: Episiotomy: none Laceration: none Other procedures: none complications: none Discharge diagnosis: IUP at term delivered [place] baby: male Hospital course: Pt was admitted for an IOL r/t GDM. She had a w/o pp complications. See H&P,delivery summary, and PP notes. Condition at discharge: Stable Disposition: DC-01 TO HOME OR SELFCARE Plan - Discharge Medications Prescriptions: Ferrous Sulfate [Feosol 325 MG tab] 325 mg PO BID #120 tablet Ibuprofen [Motrin 600 MG tab] 600 mg PO Q6HR #30 tablet - Provider Discharge Summary Activity: routine, no sex for 6 weeks, no heavy lifting 4 weeks, no strenuous exercise Diet: other (low carb. low sugar) Instructions: routine Additional instructions: [] Smoking cessation referral if applicable(refer to patient education folder for contact #) [] Refer to [facility] Booklet Call your doctor immediately for: * Fever > 100.5 * Heavy vaginal bleeding ( >1 pad per hour) * Severe persistent headache * Shortness of breath * Reddened, hot, painful area to leg or breast * Drainage or odor from incision. * Keep incision clean and dry at all times and follow doctor's instructions regarding bathing/showering - Follow up plan Follow up: ABDOULAYE COFFMAN JR, MD [Primary Care Provider] - 6 Weeks
[2021-01-03] MEDS: DOCUSATE SODIUM 100 MG CAP PO SCH (12:31)
[2021-01-03] MEDS: FERROUS SULFATE 325 MG TAB PO SCH (12:31)
[2021-01-03] MEDS: WITCH HAZEL/ GLYCERIN PAD TP PRN (12:34)
[2021-01-03 13:46] VITALS: BP 124/78
== END 2021-01-03 13:31 | disposition home or self-care (01) | DRG 775 ==
LOC: LD 20:41 → OB 01-01 05:36
PROVIDERS: ADMIT Obstetrics & Gynecology; ATTEND Obstetrics & Gynecology
PROC: 10E0XZZ Delivery of Products of Conception, External Approach (ICD-10-PCS; principal; 2021-01-01)
PROC: 3E033VJ Introduction of Other Hormone into Peripheral Vein, Percutaneous Approach (ICD-10-PCS; 2021-01-01)
PROC: 3E0R3BZ Introduction of Anesthetic Agent into Spinal Canal, Percutaneous Approach (ICD-10-PCS; 2021-01-01)
PROC: 00HU33Z Insertion of Infusion Device into Spinal Canal, Percutaneous Approach (ICD-10-PCS; 2021-01-01)
DX: O76 Abnormality in fetal heart rate and rhythm complicating labor and delivery (principal); O24.429 Gestational diabetes mellitus in childbirth, unspecified control; Z20.822 Contact with and (suspected) exposure to COVID-19; O69.1XX0 Labor and delivery complicated by cord around neck, with compression, not applicable or unspecified; O99.824 Streptococcus B carrier state complicating childbirth; O70.1 Second degree perineal laceration during delivery; Z3A.39 39 weeks gestation of pregnancy; Z37.0 Single live birth; Z82.49 Family history of ischemic heart disease and other diseases of the circulatory system; Z83.3 Family history of diabetes mellitus
CPT/HCPCS: 36415; 82962; 85014; 85018; 85027; 86592; 86850; 86900; 86901; 88307; G0378; A6250; J0290; J0595; J2590; J7120; U0003